=== PATIENT | female | born 1980 ===

== ENCOUNTER 2020-11-12 05:42 | Inpatient (IN) ==
[2020-11-12] MEDS ORDERED: Buffered Lidocaine 1% SYRIN 1 ml INTRADERM ONE (06:00)
[2020-11-12] MEDS ORDERED: Lactated Ringers 1000 ml BAG 1,000 ML IV SCH (06:00)
[2020-11-12] MEDS ORDERED: Clindamycin 900 MG/D5W BAG 900 MG/50 ML BAG IVPB ONE (06:20)
[2020-11-12] MEDS ORDERED: Heparin 5000 UNITS/ML 1 mL VIAL ONE (06:20)
[2020-11-12] MEDS ORDERED: fentaNYL 100 mcg/2 ml 50 MCG/ML VIAL ONE ×2 (06:47→11:09)
[2020-11-12] MEDS ORDERED: Propofol 10 MG/ML 20 ML BTL ONE ×3 (06:47→08:46)
[2020-11-12] MEDS ORDERED: Rocuronium 50 mg VIAL 10 mg/ml 5 ml VIAL (50 mg) ONE ×3 (06:47→09:58)
[2020-11-12] MEDS ORDERED: Midazolam 2 mg/2 ml VIAL 1 mg/ml 2 ml VIAL (2 mg) ONE (06:47)
[2020-11-12] MEDS ORDERED: Lidocaine 2% PF 5 ML VIAL ONE (06:47)
[2020-11-12] MEDS ORDERED: Methylene Blue 0.5 % 50 MG/10 ML AMP IV ONE (07:05)
[2020-11-12] MEDS ORDERED: Ketamine HCL 50 mg/ml 10 ml VIAL (500 MG) ONE (07:29)
[2020-11-12] MEDS ORDERED: EPHEDrine (Pressors) 50 MG/ML VIAL ONE (07:54)
[2020-11-12] MEDS ORDERED: Dexamethasone IV 4 MG/ML VIAL 1 ml VIAL ONE (08:22)
[2020-11-12] MEDS ORDERED: Acetaminophen IV 1 GM/100ML 100 ML ONE (08:35)
[2020-11-12] MEDS ORDERED: diPHENhydraMINE IV 50 MG/ML 1 ml VIAL (BENADRYL) IV PRN (10:00)
[2020-11-12] MEDS ORDERED: Naloxone 0.4 mg VIAL 0.4 mg/ml 1 ml VIAL IV PRN (10:00)
[2020-11-12] MEDS ORDERED: Ondansetron 4 mg VIAL 2 MG/ML 2 ml VIAL ONE ×2 (10:01→10:35)
[2020-11-12] MEDS ORDERED: HYDROcodone/ACET. 7.5/325 LIQ 15 ML UDC PO PRN (10:22)
[2020-11-12] MEDS ORDERED: Dextrose 50% Syringe 50 ml 25 GM/50 ML SYRINGE IV PUSH PRN (10:25)
[2020-11-12] MEDS ORDERED: Albuterol/Ipratropium NEB.SOL (2.5/0.5 MG) 3 ML NEB.SOLN INH PRN (10:27)
[2020-11-12] MEDS: Ondansetron 4 mg VIAL 2 MG/ML 2 ml VIAL IV PRN ×2 (10:36→16:13)
[2020-11-12] MEDS ORDERED: diPHENhydraMINE IV 50 MG/ML 1 ml VIAL (BENADRYL) ONE (11:09)
[2020-11-12] MEDS: fentaNYL 100 mcg/2 ml 50 MCG/ML VIAL IV PRN ×4 (11:11→11:28)
[2020-11-12] MEDS: Lactated Ringers 1000 ml BAG 1,000 ML IV SCH ×2 (12:04→19:23)
[2020-11-12] MEDS: HYDROmorphone 0.5 MG/0.5 ML SYRINGE IV SLOW PU PRN ×3 (12:47→21:35)
[2020-11-12] MEDS: Heparin 5000 UNITS/ML 1 mL VIAL SUBCUT SCH (21:54)
[2020-11-13] MEDS ORDERED: hydrALAZINE 20 mg/ml 1 ML Vial IV IV SLOW PU PRN (00:42)
[2020-11-13] MEDS: HYDROmorphone 0.5 MG/0.5 ML SYRINGE IV SLOW PU PRN (00:53)
[2020-11-13] MEDS: Lactated Ringers 1000 ml BAG 1,000 ML IV SCH ×2 (02:02→08:16)
[2020-11-13] MEDS: Heparin 5000 UNITS/ML 1 mL VIAL SUBCUT SCH ×2 (05:49→14:34)
[2020-11-13] MEDS ORDERED: Famotidine IV 10 MG/ML 2 ml VIAL (20 mg) IV SLOW PU PRN (07:46)
[2020-11-13] MEDS ORDERED: D5W 1/2 NS KCl 20 meq 1000 ml 1,000 ML IV SCH (11:00)
[2020-11-13 15:51] VITALS: BP 116/57
== END 2020-11-13 19:15 | disposition home or self-care (01) | DRG 403 ==
LOC: AA 05:42 → SSU 11:52
PROVIDERS: ADMIT Surgery; ATTEND Surgery